=== PATIENT | female | born 1950 | race Caucasian/White ===

== ENCOUNTER → 2018-04-12 06:24 | Outpatient (CLI) | payer MEDICARE, OTHER, SELFPAY ==
--- NOTE | 2018-04-12 10:42 | STRESSREP ---
Stress Test Report Exercise myocardial perfusion stress test. 67-year-old lady with a history of paroxysmal atrial fibrillation minimal coronary artery disease. Stress protocol: Resting EKG demonstrates sinus bradycardia with a rate of 47 bpm normal intervals and noted resting blood pressures 128/72 mmHg. The patient exercised according to regular James protocol for total duration of 7 minutes the maximum heart rate attained was 96 bpm which was 61% maximum predicted heart rate the maximum workload was 8.5 metabolic equivalents. The patient maintained sinus rhythm throughout the recording with no atrial fibrillation noted. At rest were no ST or T-wave changes noticed ischemia peak exercise no ST or T-wave changes were noted suggest ischemia. The resting blood pressure is 120/72 with a peak blood pressure of 142/76 rate pressure product was 12,200. No clinical angina was noted. Myocardial perfusion protocol. 10.9 mCi of technetium 99m sestamibi was injected at rest. The patient exercised according to regular James protocol for total duration of 7 minutes and at peak exercise 32.1 mCi of technetium 99m sestamibi was injected stress and rest images were reconstructed and compared in the short axis vertical long horizontal long axis. Gated images were also obtained. Perfusion SPECT analysis. Review of the stress images demonstrate normal uptake of tracer noted in all areas of myocardium on the stress images. The resting images demonstrate a similar patent with no areas of ischemia noted. No previous infarct is noted. Gated SPECT analysis: The gated ejection fraction is noted to be 65%. Conclusion: Normal exercise myocardial perfusion stress test at a moderate workload. No episodes of atrial fibrillation noted. Preserved ejection fraction.
== END ==
PROVIDERS: Family Provider Family Medicine; PCP Family Medicine; Visit Provider Internal Medicine Cardiovascular Disease
DX: I25.10 Atherosclerotic heart disease of native coronary artery without angina pectoris (principal)
CPT/HCPCS: 78452; 93017; A9500; A4216